=== PATIENT | male | born 1985 | race Caucasian/White ===

== ENCOUNTER 2017-11-09 11:15 | Emergency (ER) | payer SELFPAY ==
[~2017-11-09] VITALS: Ht 182.9 cm; Wt 85.0 kg
[~2017-11-09 11:15] MED LIST: CEPH500 PO; IBUP-238 PO; SULF-154 PO
[2017-11-09 11:18] VITALS: BP 132/63; PULSE 80; RESP 18; TEMP 98.3; O2SAT 100
[2017-11-09] MEDS ORDERED: CEPH-460 PO ×2 (11:49→11:50)
[2017-11-09] MEDS ORDERED: BACT800T5 PO ×2 (11:49→11:50)
[2017-11-09] MEDS ORDERED: IBUP1TAB7 PO ×2 (11:49→11:50)
--- NOTE | 2017-11-09 11:49 | PD ---
HPI Chief Complaint: Skin Problem Time Seen by Provider: 11:40 Travel History International Travel<30 days: No Contact w/Intl Traveler<30days: No Traveled to known affect area: No History of Present Illness HPI 31-year-old male presents emergency department for evaluation of what he believes a spider bite on his right lateral thigh. He noticed it a week ago. He states it increase in size. Yesterday it began draining and today in the shower he drained a large amount of purulent drainage from it. He went to the pharmacy to see if he could get topical ointment and they advised he get on oral antibiotics. He is here for this. He denies any fever or chills. States it is moderate pain at the site, like he is aware it is there, however it only really hurts when it is palpated. He has no other symptoms to report. PFSH Past Medical History Medical History: Denies Significant Hx Tetanus Vaccination: < 5 Years Past Surgical History Surgical History: No Previous Surgery Social History Alcohol Use: No Tobacco Use: Yes Substance Use: No Allergies-Medications (Allergen,Severity, Reaction): Coded Allergies: *MDRO Multi-Drug Resistant Organism (Verified Allergy, Unknown, 11/09/17) MRSA Uncoded Allergies: narcotics (Adverse Reaction, Unknown, Restlessness, 11/09/17) recovery Reported Meds & Prescriptions Reported Meds & Active Scripts Active Bactrim DS (Sulfamethoxazole-Trimethoprim) 800-160 Mg Tab 1 Tab PO BID Keflex (Cephalexin) 500 Mg Capsule 500 Mg PO QID 5 Days Ibuprofen 800 Mg Tab 800 Mg PO Q8H PRN Review of Systems Except as stated in HPI: all other systems reviewed are Neg Physical Exam Narrative GENERAL: Well-nourished, well-developed male patient in no acute distress SKIN: There is an indurated area in the right anterior lateral thigh which measures about 6 cm in diameter. There is 1 cm opening and purulent drainage is able to be expressed from it.. There is a zone of inflammation around it but no lymphangitis. HEAD: Normocephalic. EYES: No scleral icterus. No injection or drainage. NECK: Supple, trachea midline. No JVD or lymphadenopathy. CARDIOVASCULAR: Regular rate and rhythm without murmurs, gallops, or rubs. RESPIRATORY: Breath sounds equal bilaterally. No accessory muscle use. GASTROINTESTINAL: Abdomen soft, non-tender, nondistended. MUSCULOSKELETAL: No cyanosis, or edema. BACK: Nontender without obvious deformity. No CVA tenderness. Data Data Last Documented VS Vital Signs Date Time Temp Pulse Resp B/P (MAP) Pulse Ox O2 Delivery O2 Flow Rate FiO2 11/09/17 11:18 98.3 80 18 132/63 (86) 100 Orders Orders Wound Culture And Gram Stain (11/09/17 11:45) Ed Discharge Order (11/09/17 11:45) MDM Medical Decision Making Medical Screen Exam Complete: Yes Emergency Medical Condition: Yes Medical Record Reviewed: Yes Differential Diagnosis Abscess versus erysipelas versus folliculitis versus cellulitis Narrative Course 30-year-old male presents emergency department for evaluation of what he believes is a spider bite on his right anterior lateral thigh. Physical exam is consistent with an abscess that is already draining. Culture is obtained. Patient is counseled on care and will be started on oral antibiotics. He is encouraged to follow-up with a primary care provider and return immediately with acute worsening of symptoms. Diagnosis Primary Impression: Abscess of thigh Referrals: Primary Care Physician Patient Instructions: Abscess Incision and Drainage (DC), General Instructions Additional Instructions: Warm compresses to the affected area Avoid squeezing the area Start antibiotic today and take it until it is all gone Return immediately with any acute worsening symptoms Med/Other Pt SpecificInfo: Prescription(s) given Scripts Sulfamethoxazole-Trimethoprim (Bactrim DS) 800-160 Mg Tab 1 TAB PO BID for Infection, #20 TAB 0 Refills Prov: Waleska Vences 11/09/17 Cephalexin (Keflex) 500 Mg Capsule 500 MG PO QID for Infection for 5 Days, CAP 0 Refills Prov: Waleska Vences 11/09/17 Ibuprofen (Ibuprofen) 800 Mg Tab 800 MG PO Q8H Y for PAIN SCALE 1 TO 10, #30 TAB 0 Refills Prov: Waleska Vences 11/09/17 Disposition: 01 DISCHARGE HOME Condition: Stable Waleska Vences November 09, 2017 11:49
== END 2017-11-09 11:57 | disposition home or self-care (01) ==
LOC: NEPK 11:15
DX: L02.415 Cutaneous abscess of right lower limb (principal)
CPT/HCPCS: 86403; 87070; 87186; 99283